=== PATIENT | male | born 1990 | race Caucasian/White ===

== ENCOUNTER 2017-12-22 20:51 | Emergency (ER) | payer SELFPAY ==
[2017-12-22] MEDS ORDERED: Bacitracin Zinc 1 Packet ONE (21:21)
== END 2017-12-22 21:29 | disposition home or self-care (01) ==
LOC: BURERS 20:51
DX: S61.412A Laceration without foreign body of left hand, initial encounter (principal); I10 Essential (primary) hypertension; F41.9 Anxiety disorder, unspecified; W26.8XXA Contact with other sharp object(s), not elsewhere classified, initial encounter
CPT/HCPCS: 12001